=== PATIENT | female | born 1960 | race Caucasian/White ===

== ENCOUNTER → 2017-01-12 | Outpatient (CLI) | payer OTHER ==
[~2017-01-12] MED LIST: ANAS1TAB19 PO; ASCO1CAP3; ASPI-435; CALCIUM WITH D; CYAN500T13 SL; DICL75TA2 PO; HYDR5TAB27 PO
--- NOTE | 2017-01-12 12:32 | DIAGNOSTIC IMAGING REPORT ---
PET/CT SKULL-THIGH CLINICAL HISTORY: 56 years-old Female presenting with BREAST CANCER, initial diagnosis in 2008 status post lumpectomy and radiation in 2008, subsequent recurrence with most recent treatment December 17, 2016. TECHNIQUE: PET/CT was performed from the base of the skull through the proximal thighs following the intravenous administration of 12.536 mCi of F18-FDG. Blood glucose level 83 mg/dL. The injection was performed at 10:50 AM and imaging began at 11:[address] was performed for attenuation correction purposes and anatomic localization. COMPARISON: None. CT DOSE (mGy.cm): The estimated cumulative dose is 969.17. FINDINGS: Head and neck: No FDG-avid disease or significant lymphadenopathy in the imaged portions of the head and the neck. Chest: Right subclavian Mediport terminates in the mid SVC. Postsurgical changes of bilateral mastectomy. Minimal FDG avidity noted in the left axilla associated with postsurgical change (max SUV 1.95). No suspicious nodularity on anatomic imaging in this region. There is no FDG-avid disease in the chest. Calcified mediastinal lymph nodes noted, likely indicating prior granulomatous infection. There is no axillary, mediastinal, or hilar lymphadenopathy. There is no pleural or pericardial effusion. There is no air-space disease or suspicious lung nodule. Abdomen and pelvis: Below the diaphragm, tracer is distributed physiologically in the gastrointestinal and genitourinary tracts. Cholecystectomy clips noted. The spleen is enlarged though not abnormally FDG avid, measuring 14.5 cm in maximal sagittal dimension (max SUV 2.07). There is no significant lymphadenopathy and no FDG-avid disease. The patient is status post hysterectomy. Diverticulosis. Small hiatal hernia. Small duodenal diverticula at the pancreatic head and adjacent to the left renal vein. Atherosclerosis. Musculoskeletal: There is no FDG-avid or destructive bone lesion. Bilateral pars defects of L5. IMPRESSION: 1. Initial PET/CT demonstrates no evidence of residual or recurrent disease. No FDG avid metastatic disease or lymphadenopathy. 2. Mild splenomegaly. Electronically signed by: Jeffrey Dinh M.D. 01/12/2017 12:30 PM Dictated Date/Time: 01/12/2017 12:16 PM
== END | disposition home or self-care (01) ==
LOC: C.PET 10:26
PROVIDERS: ATTEND Internal Medicine Hematology
DX: C50.912 Malignant neoplasm of unspecified site of left female breast (principal)

== ENCOUNTER → 2017-04-11 | Outpatient (CLI) | payer OTHER ==
--- NOTE | 2017-04-11 14:44 | DIAGNOSTIC IMAGING REPORT ---
PET/CT SKULL-THIGH CLINICAL HISTORY: 56 years-old Female with BREAST CANCER. subsequent treatment strategy. Follow-up study in a patient with history of breast cancer. History of bilateral mastectomy. COMPARISON: PET CT 01/12/2017 TECHNIQUE: The patient was injected with 9.0 mCi of F-18 fluorodeoxyglucose (FDG) and an emission scan was performed from the skull vertex to the toes. Noncontrast CT was performed for attenuation correction and anatomic localization. The blood glucose level was 78 mg/dl. FINDINGS: HEAD AND NECK: There are ill-defined increased uptake are noted within the tongue, soft tissues anterior to the right maxilla, salivary glands and within the musculature about the posterior neck, likely physiologic. No hypermetabolic adenopathy identified. CHEST: Ill-defined minimally increased uptake is noted within the region of the esophagus at the level of the aortic arch on image 73 series 2, likely artifactual. Otherwise, there is a physiologic distribution of activity, with no hypermetabolic mediastinal, hilar or pulmonary foci. ABDOMEN AND PELVIS: There is a physiologic distribution of activity within the liver, spleen, adrenal glands, gastrointestinal and urinary tracts, with no hypermetabolic foci. MUSCULOSKELETAL SYSTEM AND EXTREMITIES: There is a physiologic distribution of activity within the bone marrow, with no hypermetabolic foci. ADDITIONAL CT FINDINGS: Postoperative changes from prior bilateral mastectomy. Mild cardiomegaly. Calcified granulomas compatible with prior granulomatous disease. Right subclavian [id number] catheter terminates within the SVC. Mild dependent subsegmental bibasilar atelectasis. Calcified granuloma of the right upper lobe. 4 mm nodule of the basal left lower lobe is seen on image 111 of series 2 with additional 4 mm nodule seen on image 108 of series 2 which appears unchanged. No FDG uptake identified within these nodules. Splenomegaly redemonstrated, 16.3 cm which previously measured 16.8 cm. Prior cholecystectomy. Small sliding-type hiatal hernia. Prior hysterectomy. No aortic aneurysm. Mild colonic diverticulosis without diverticulitis. Normal appendix. Soft tissues and bones appear unremarkable. IMPRESSION: 1. Prior bilateral mastectomy without evidence of recurrent, residual or metastatic disease. 2. There are two 4 mm solid nodules of the basal left lower lobe without hypermetabolic activity identified. 3. Unchanged mild splenomegaly. 4. Incidental findings include prior granulomatous disease, prior cholecystectomy, hysterectomy, small sliding-type hiatal hernia and colonic diverticulosis. The above report was generated using voice recognition software. It may contain grammatical, syntax or spelling errors. Electronically signed by: Robbie Lundberg M.D. 04/11/2017 2:42 PM Dictated Date/Time: 04/11/2017 2:26 PM
== END | disposition home or self-care (01) ==
LOC: C.PET 10:22
PROVIDERS: ATTEND Internal Medicine Hematology & Oncology
DX: C50.412 Malignant neoplasm of upper-outer quadrant of left female breast (principal); Z17.0 Estrogen receptor positive status [ER+]; C77.8 Secondary and unspecified malignant neoplasm of lymph nodes of multiple regions; Z90.13 Acquired absence of bilateral breasts and nipples; R91.8 Other nonspecific abnormal finding of lung field; R16.1 Splenomegaly, not elsewhere classified

== ENCOUNTER → 2017-06-10 | Outpatient (CLI) | payer OTHER | END | disposition home or self-care (01) | LOC: C.LAB 13:21 | PROVIDERS: ATTEND Internal Medicine Hematology & Oncology | DX: R16.1 Splenomegaly, not elsewhere classified (principal); C50.412 Malignant neoplasm of upper-outer quadrant of left female breast; Z17.0 Estrogen receptor positive status [ER+]; D69.6 Thrombocytopenia, unspecified ==